=== PATIENT | female | born 1940 | race Caucasian/White ===

== ENCOUNTER 2018-06-27 09:00 | Inpatient (IN) | payer OTHER ==
[~2018-06-27] VITALS: Ht 160 cm; Wt 69.9 kg
[~2018-06-27 09:00] MED LIST: NABUMETONE500 MG PO; PERCOCET 5/3251 TAB PO
[2018-06-27] MEDS ORDERED: PLAVIX75 MG PO (11:54)
[2018-06-27] MEDS ORDERED: LOSARTAN-HCTZ1 EACH PO (11:55)
[2018-06-27] MEDS ORDERED: SYNTHROID125 MCG PO (11:55)
[2018-06-27] MEDS ORDERED: GLIMEPIRIDE1 MG PO (11:55)
[2018-06-27] MEDS ORDERED: METOPROLOL SUCC50 MG PO (11:55)
[2018-06-27] MEDS ORDERED: JANUVIA100 MG PO (11:56)
[2018-06-27] MEDS ORDERED: FENOFIBRATE160 MG PO (11:56)
[2018-06-27] MEDS ORDERED: JARDIANCE25 MG PO (11:56)
[2018-06-27] MEDS ORDERED: CRESTOR20 MG PO (11:57)
[2018-06-27] MEDS ORDERED: CLONAZEPAM1 MG PO (11:57)
[2018-07-06] MEDS ORDERED: NeurRONTin 100mg cap PO (14:06)
[2018-07-06] MEDS ORDERED: XARELTO10 MG PO (14:06)
[2018-07-06] MEDS ORDERED: NORFLEX100MG PO (14:06)
[2018-07-06] MEDS ORDERED: OXYC1TAB9 PO (14:06)
== END 2018-07-06 19:10 | disposition home or self-care (01) | DRG 470 ==
LOC: SURH 07-04 05:38 → O/R 07-04 05:38 → SURH 07-04 09:00
PROVIDERS: ADMIT Orthopaedic Surgery
PROC: 0SRD0J9 Replacement of Left Knee Joint with Synthetic Substitute, Cemented, Open Approach (ICD-10-PCS; principal; 2018-07-04 13:00)
DX: M17.12 Unilateral primary osteoarthritis, left knee (principal); D62 Acute posthemorrhagic anemia; E11.9 Type 2 diabetes mellitus without complications; I10 Essential (primary) hypertension; E03.8 Other specified hypothyroidism

== ENCOUNTER 2019-09-10 09:57 | Outpatient (CLI) | payer OTHER ==
[~2019-09-10 09:57] MED LIST changes: +CLONAZEPAM1 MG PO; +CRESTOR20 MG PO; +FENOFIBRATE160 MG PO; +GLIMEPIRIDE1 MG PO; +JANUVIA100 MG PO; +JARDIANCE25 MG PO; +LOSARTAN-HCTZ1 EACH PO; +METOPROLOL SUCC50 MG PO; +NORFLEX100MG PO; +NeurRONTin 100mg cap PO; +OXYC1TAB9 PO; +PLAVIX75 MG PO; +SYNTHROID125 MCG PO; +XARELTO10 MG PO
== END 2019-09-12 06:29 | disposition home or self-care (01) ==
LOC: RAD 09:57
DX: M25.561 Pain in right knee (principal); M25.562 Pain in left knee

== ENCOUNTER 2023-11-29 10:45 | Inpatient (IN) | payer OTHER ==
[2023-11-29] MEDS ORDERED: APIXABAN (12:20)
[2023-11-29] MEDS ORDERED: ESTAZOLAM1 MG (12:20)
[2023-11-29] MEDS ORDERED: FARXIGA10 MG (12:20)
[2023-11-29] MEDS ORDERED: MULTAQ400 MG (12:21)
[2023-11-29] MEDS ORDERED: PIOGLITAZONE HC15 MG (12:22)
[2023-12-06] MEDS ORDERED: TRANEXAMIC ACID 100MG/1ML (1000MG) AMPUL IV ONE ×2 (06:54→10:45)
[2023-12-06] MEDS ORDERED: CEFAZOLIN SODIUM 1,000 MG VIAL ONE (06:54)
[2023-12-06] MEDS ORDERED: ONDANSETRON HCL 2 MG/ML VIAL IV PRN (09:30)
[2023-12-06] MEDS ORDERED: OxyCODONE HCL/APAP UD (PERCOCET) PO PRN (09:30)
[2023-12-06] MEDS ORDERED: KETOROLAC TROMETHAMINE 60 MG VIAL IM ONE (09:53)
[2023-12-06] MEDS ORDERED: VANCOMYCIN HCL 1,000 MG VIAL ONE (09:53)
[2023-12-06] MEDS ORDERED: LIDOCAINE HCL 1%/EPINEPHRINE 20ML VIAL IJ ONE (09:53)
[2023-12-06] MEDS ORDERED: CEFAZOLIN SODIUM 1,000 MG VIAL IV SCH (12:00)
[2023-12-06] MEDS ORDERED: MORPHINE SULFATE 4 MG/ML CARTRIDGE IV SCH (12:00)
[2023-12-06] MEDS ORDERED: DEXTROSE 50 % IN WATER 0.5 G/ML DISP.SYRIN IV PRN (13:45)
[2023-12-06] MEDS ORDERED: INSULIN LISPRO 1,000 UNIT/10 ML UNITS SUBCUTANEO PRN (13:45)
[2023-12-06] MEDS ORDERED: hydrALAZINE HCL 20 MG VIAL IV PRN (14:00)
[2023-12-06] MEDS ORDERED: PATIENTS OWN MEDICATION (MEDICAMENTO EN PISO) PO SCH ×2 (17:00→21:00)
[2023-12-06] MEDS ORDERED: ORPHENADRINE CITRATE 100 MG TABLET PO SCH (21:00)
[2023-12-06] MEDS ORDERED: GABAPENTIN 100 MG CAPSULE PO SCH (21:00)
[2023-12-07] MEDS ORDERED: LEVOTHYROXINE SODIUM 112 MCG TABLET PO SCH (06:00)
[2023-12-07 07:08] LABS: HEMATOCRIT 31.2 % (36.0-45.00); HEMOGLOBIN 10.6 g/dL (12.0-15.00); MEAN CELL VOLUME 88.6 fL (80.00-100.00); MEAN CORPUSCULAR HEMOGLOBIN 30.1 pg (27.00-32.0); MEAN CORPUSCULAR HGB CONC 33.9 g/dl (32.0-36.0); PLATELET COUNT 177 K/uL (150-450); RED BLOOD COUNT 3.52 M/uL (4.00-6.00); RED CELL DISTRIBUTION WIDTH 14.7 % (11.5-14.5)
[2023-12-07 07:22] LABS: CALCIUM 8.7 mg/dL (8.5-10.1); CREATININE SERUM 1.38 mg/dL (0.55-1.02); GFR 36.69; MAGNESIUM 2.4 mg/dL (1.8-2.4); PHOSPHOROUS 5.4 mg/dL (2.5-4.9); POTASSIUM 4.51 mEq/L (3.5-5.1)
[2023-12-07] MEDS ORDERED: METOPROLOL SUCCINATE 50 MG TAB.SR.24H PO SCH (09:00)
[2023-12-07] MEDS ORDERED: LOSARTAN POTASSIUM 50 MG TABLET PO SCH (09:00)
[2023-12-07] MEDS ORDERED: ENOXAPARIN SODIUM 30 MG/0.3 ML SYRINGE SUBCUTANEO SCH (09:00)
[2023-12-07] MEDS ORDERED: Cyanocobalamin/Mecobalamin 1 TAB.SL SL SCH (10:43)
[2023-12-07] MEDS ORDERED: SOD FERRIC GLUC COMPLX/SUCROSE 62.5 MG in 0.9 % SODIUM CHLORIDE 50 ML IV SCH (10:43)
[2023-12-08 05:17] LABS: HEMATOCRIT 28.1 % (36.0-45.00); HEMOGLOBIN 9.5 g/dL (12.0-15.00); MEAN CELL VOLUME 89.3 fL (80.00-100.00); MEAN CORPUSCULAR HEMOGLOBIN 30.1 pg (27.00-32.0); MEAN CORPUSCULAR HGB CONC 33.7 g/dl (32.0-36.0); PLATELET COUNT 156 K/uL (150-450); RED BLOOD COUNT 3.14 M/uL (4.00-6.00); RED CELL DISTRIBUTION WIDTH 14.5 % (11.5-14.5)
[2023-12-08] MEDS ORDERED: OxyCODONE HCL/APAP UD (PERCOCET) PO PRN (11:30)
== END 2023-12-08 17:40 | DRG 470 ==
LOC: O/R 12-06 05:57 → SURG 12-06 07:00 → SURH 12-06 14:04
PROVIDERS: Internal Medicine Geriatric Medicine; ADMIT Orthopaedic Surgery; ATTEND Orthopaedic Surgery
PROC: 4A12X4Z Monitoring of Cardiac Electrical Activity, External Approach (ICD-10-PCS; 2023-12-06)
PROC: 0SRC0JZ Replacement of Right Knee Joint with Synthetic Substitute, Open Approach (ICD-10-PCS; principal; 2023-12-06 07:00)
DX: M17.11 Unilateral primary osteoarthritis, right knee (principal); I10 Essential (primary) hypertension; D64.9 Anemia, unspecified; E11.9 Type 2 diabetes mellitus without complications; I48.91 Unspecified atrial fibrillation